=== PATIENT | male | born 1990 | race African-American/Black ===

== ENCOUNTER 2017-12-13 22:50 | Emergency (ER) | payer MEDICAID, OTHER ==
[~2017-12-13] VITALS: Ht 172.7 cm; Wt 59.0 kg
[2017-12-13 22:56] VITALS: BP 105/64
== END 2017-12-14 02:00 | disposition left against medical advice (07) ==
LOC: ER 23:43
DX: Z53.21 Procedure and treatment not carried out due to patient leaving prior to being seen by health care provider (principal)